=== PATIENT | male | born 1970 | race Caucasian/White ===

== ENCOUNTER → 2021-02-07 08:50 | Outpatient (CLI) | payer BC, SELFPAY | PROVIDERS: PCP Family Medicine; Visit Provider Family Medicine | DX: G47.30 Sleep apnea, unspecified (principal); I10 Essential (primary) hypertension; R06.83 Snoring; E66.9 Obesity, unspecified | CPT/HCPCS: G0399 ==

== ENCOUNTER → 2021-11-13 08:18 | Outpatient (CLI) | payer BC, SELFPAY ==
[2021-11-14 06:09] LABS: Covid-19 Nasal PCR Sendout Lex POSITIVE
== END ==
PROVIDERS: PCP Family Medicine; Visit Provider Nurse Practitioner
DX: U07.1 COVID-19 (principal)
CPT/HCPCS: C9803; U0004; U0005

== ENCOUNTER 2022-07-09 19:19 | Emergency (ER) | payer BC, SELFPAY ==
[2022-07-09 19:55] VITALS: BP 162/90; PULSE 71; RESP 19; TEMP 36.8; O2SAT 98; BMI 29.3
[2022-07-09 20:11] LABS: Apearance,Urine Clear (Clear); Bilirubin,Urine Negative (Negative); Blood, Urine Negative (Negative); Color,Urine Yellow (Yellow); Glucose,Urine (UA) Negative (Negative); Ketones,Urine Negative (Negative); Protein,Urine Negative (Negative); Specific Gravity, Urine 1.015 (1.005-1.030); UTC Leukocyte Esterase,Urine Negative (Negative); UTC Nitrate,Urine Negative (Negative); Urobilinogen,Urine 0.2 EU/dl (0.2)
[2022-07-09 20:12] LABS: UTC Strep Screen (Rapid) Negative (Negative)
[2022-07-09 20:40] LABS: Adenovirus,PCR Not Detected (NotDetected); Bordetella Pertussis Not Detected (NotDetected); Chlamydophila Pneumoniae, PCR Not Detected (NotDetected); Coronavirus 19, PCR Not Detected (NotDetected); Coronavirus 229E Not Detected (NotDetected); Coronavirus NL63 Not Detected (NotDetected); Coronavirus OC43 Not Detected (NotDetected); Coronovirus HKU1,PCR Not Detected (NotDetected); Human Metapneumovirus Not Detected (NotDetected); Influenza A, PCR Not Detected (NotDetected); Influenza AH1, 2009 Not Detected (NotDetected); Influenza AH1, PCR Not Detected (NotDetected); Influenza AH3,PCR Not Detected (NotDetected); Influenza B, PCR Not Detected (NotDetected); Mycoplasma Pneumoniae, PCR Not Detected (NotDetected); Parainfluenza 1, PCR Not Detected (NotDetected); Parainfluenza 2, PCR Not Detected (NotDetected); Parainfluenza 3, PCR Not Detected (NotDetected); Parainfluenza 4, PCR Not Detected (NotDetected); Respiratory Syncytial Virus Not Detected (NotDetected)
--- NOTE | 2022-07-09 20:47 | EXP.UTC ---
Discharge Plan Prescriptions Prescriptions: No Action lisinopril 10 mg tablet 10 mg PO DAILY Label Comments: TAKE 1 TABLET BY MOUTH ONCE DAILY Referrals Follow up/Referrals: Dedrick Church MD [Primary Care Provider] - See instructions Activity Restrictions/Add. Instructions Additional Instructions/Restrictions: *Monitor Temp, Over the counter Motrin or Tylenol as directed/as needed Tylenol every 4 hours and Motrin every 6 hours (as long as your family doctor has told you that you can take it) for fever or pain. and straight to ER if unable to lower temp less than 101.0 after medication given *Warm salt water gargles may help to soothe the throat *Throat Lozenges? *Warm fluids like tea with honey may help to soothe the throat? *Sleep elevated *Humidifier/Vaporizer Your throat swab was sent for culture. Those results are typically sent to your primary care. Be sure to follow up in 2-3 days with your family doctor/primary care physician if no improvement so they can review those result and treat if necessary. If you don?t have a primary care doctor, I recommend you get one but in the mean time, you will have to return to a walk in clinic Follow up IMMEDIATELY for new or worsening symptoms or no Noticeable improvement over the next 48-72 hours. 911 for difficulty breathing or swallowing You were tested for today for Upper Respiratory Panel with COVID19 your test result should be back in the next 24-48 hours, you may check your results on the [facility] My Health Portal Make sure to take your Vitamins Vit. C Vit D and Zinc if you can take them Clinical Impressions Clinical Impression: Viral syndrome Stand Alone Forms Stand Alone Forms: Work/School Release Instructions Patient Instructions: Sore Throat, DI for Viral Syndrome Discharge ED Provider: Lashonda Marcelo [facility] [place] General Stated complaint: Sore throat,body aches Mode of Arrival: Ambulatory Source of Information: Patient Limitations: No Limitations Time Seen by Provider: 07/09/22 20:47 Description of Symptoms (Recalled from Triage Doc. by RN): PATIENT C/O BODY ACHES, SORE THROAT, AND FREQUENT URINATION X 4 DAYS HEENT Symptoms (Recalled from RN notes): Yes Resp Symptoms (Recalled from RN notes): No Skin Symptoms (Recalled from RN notes): No MS Symptoms (Recalled from RN notes): Yes Functional Status (Recalled from RN notes): WNL History of Present Illness Provider Complaint: Patient states that he has been having sore throat and body aches for about 4 days States that he also noticed he felt like he was urinating more frequently and wanted to get his urine checked to see if he may have a UTI States that this evening he was still not feeling well so he came in to get checked Related Data Home Medications Medication Instructions Recorded Confirmed lisinopril 10 mg tablet 10 mg PO DAILY Hypertension 07/09/22 07/09/22 Allergies Allergy/AdvReac Type Severity Reaction Status Date / Time No Known Allergies Allergy Verified 02/01/19 20:06 Worker's Comp Is this a Worker's Comp case?: No PFSH [facility] Medical History (Updated 07/09/22 @ 20:55 by Lashonda Marcelo APRN) Hypertension Social History (Updated 07/09/22 @ 20:10 by Annemarie Peres RN) Smoking Status: Unknown if ever smoked alcohol intake: never current occupational status: employed Travel in the last 8 weeks: None ROS Obtained: Yes All systems reviewed & no additional complaints except as documented and Yes Systems reviewed as appropriate & no additional complaints except as documented Constitutional Constitutional: Reports system reviewed and no additional complaints, except as documented and Reports as per HPI ENT Ears, Nose, Mouth, and Throat: Reports system reviewed and no additional complaints, except as documented, Reports as per HPI, Reports nasal congestion, Reports nasal discharge and Reports sore throat Cardiovascular Cardiovascular: Reports s
[2022-07-09 20:56] VITALS: BP 162/90; PULSE 71; RESP 19; TEMP 36.8; O2SAT 98
[2022-07-09 22:08] LABS: Rhinovirus/Enterovirus Detected (NotDetected)
== END 2022-07-09 21:01 | disposition home or self-care (01) ==
LOC: UTC 19:22
PROVIDERS: Emergency Provider Nurse Practitioner; PCP Family Medicine
DX: B34.8 Other viral infections of unspecified site (principal)
CPT/HCPCS: 81003; 87581; 87632; 87798; 87880; 99212; C9803; G0463; U0003; U0005

== ENCOUNTER 2025-05-04 07:16 | Outpatient (CLI) | payer SELFPAY ==
--- OUTSIDE RECORDS SUMMARY | 2024-10-29 05:00 | XMS_ITS ---
Author Organization [facility] Address [facility] [facility] [address] [place] [id number] Care Team Providers Care Cyber Workforce Developer And Manager Name Role Phone Dedrick Church Primary Care Provider [phone] Allergies No Known Allergies REASON FOR VISIT 6 month check Medications Medication SIG (Take, Route, Fr equency, Duration) Notes Start Date End Date Status Lisinopril 10 MG 1 tablet Orally once daily; Duration: 90 days Active Mupirocin 2 % 1 application Forming Process Line Worker ally Twice a day; Duration: 5 day(s) Active Acyclovir 200 MG 1 capsule Orally Three times a day Active Vital Signs Blood pressure systolic 128 mm Hg 10/29/19 25 Blood pressure diastolic 76 mm Hg 025 Heart Rate 56 /min 10/29/2024 Height 75 in 10/29/2024 Weight 232 lbs 10/29/2024 BMI 28.99 kg/m2 10/29/2024 Encounters Encounter Location Date Provider Diagnosis [facility] [address] [place] [id number] 10/29/2024 Dedrick Church Primary hypertension I10 Assessments Encounter Date Diagnosis (ICD Code) Assessment Notes Treatment Notes Treatment Clinical Notes Section Notes 10/29/2024 Primary hypertension (ICD-10 - I10) Plan Of Treatment Medication Medication Name Sig Start Date Stop Date Notes Lisinopril 10 MG 1 tablet Orally once daily; Duration: 90 days Next Appt Details Follow Up: 6 Months fasting, Reason: Provider Name:Dedrick chicas, 11/11/2025 09:00:00 AM, [address], [address], [place], [place], [phone], Progress Notes * CHRISTOPHER LAWDOB: 2 (54 yo M)Acc No.[id number]:10/29/2024 Progress Notes Patient: CHRISTOPHER SIMEON Provider: Bronson Church M.D. :1970 A ge:54 Y S ex:Male Date:10/29/2024 Address:[facility] [place], [id number] Subjective: * Chief Complaints: * 1 . 6 month check. * HPI: C ardiology: Blood Pressure Elevated P t presents today for a 6 month check up. Pt is fasting today however believes he is not due for labs until March. D ermatology: blisters P t sts that he is seeing Dr. Tavarez for his lip. Pt sts that he is currently on Acyclovir and Mupirocin cream but does not feel that it is working.? * ROS: D ERMATOLOGY: no R talita. [...] . Alcohol: no. * Medications: T aking Mupirocin 2 % Ointment 1 application Externally Twice a day , Taking Acyclovir 200 MG Capsule 1 capsule Orally Three times a day , Taking Lisinopril 10 MG Tablet 1 tablet Orally once daily , Discontinued valACYclovir HCl 1 GM Tablet 2 tablet Orally 2 times a day , Medication List reviewed and reconciled with the patient * Allergies: N .K.D.A. Objective: * Vitals: W t:232, Temp:97.9, BP:128/76, HR:56, Nurse:YVETTE, Ht: 75, BMI:28.99. * Examination: C ardiology: General Appearance: p leasant, NAD. H eart sounds: R RR. L ungs: c lear, no rales or wheezes. E xtremities: n o leg edema. ? Assessment: * Assessment: 1. P rimary hypertension - I10 (Primary) Plan: * Treatment: * Follow Up: 6 Months fasting * Images: Billing Information: * Visit Code: 82040 Office Visit, Est Pt., Level 3. * Procedure Codes: * Electronic signature of Charu Church MD on 05/04/2025 at 07:17 AM EDT Sign off status: Pending * Provider: Bronson Church M.D. Date: 0 10/29/2024 Generated for Luis F pierson/Lilliam/eTransmitting on: 0 05/04/2025 07:17 AM EDT History and Physical Notes * HPI (History of Present Illness) Category Sub-Category Detail Notes Category Not es Dermatology blisters Pt sts that he i s seeing Dr. Tavarez for his lip. Pt sts that he is currently on Acyclovir and Mupirocin cream but does not feel that it is working Cardiology Blood Pressure Elevated Pt prese nts today for a 6 month check up. Pt is fasting today however believes he is not due for labs until March Examination Category Sub-Category Detail Notes Category Not es Cardiology Lungs: clear, no rales or wheezes Heart sounds: RRR Extremities: no leg edema General Appearance: pleasant, NAD
--- OUTSIDE RECORDS SUMMARY | 2025-04-29 05:00 | XMS_ITS ---
Author Organization [facility] Address [address] [facility] [address] [place] [id number] Care Team Providers Care Lining Strap Closer Name Role Phone Dedrick Church Primary Care Provider Allergies No Known Allergies Results Component Value Reference Range Notes P-Basic Metabolic Panel (BMP ) Reviewed date:04/30/2025 09:39:02 AM Interpretation:Normal Performing Lab: Notes/Report: Test performed by [facility] [address] [place] [address] , [address], [place] [address] Nando Delgadillo MD, Transport Engineer CLIA: [id number] Sodium 142 135-145 mmol/L Potassium 4.2 3.5-5.3 mmol/L Chloride 108 97-108 mmol/L CO2 25 20-32 mmol/L Glucose 98 65-99 mg/dL BUN 19 6-20 mg/dL Creatinine 0.91 0.70-1.30 mg/dL Calcium 8.9 8.6-10.4 mg/dL eGFR by Creatinine 101 >59 mL/min/1.73m2 P-Lipid Panel Reviewed date:04/30/2025 09:39:02 AM Interpretation:HDL 28, Chol/HDL 5.82, Non-HDL 135, LDL/HDL 3.9 Performing Lab: Notes/Report: Test performed by [facility] [address] [place], [place] [address] [address] , [address], [place] [address] Nando Delgadillo MD, Transport Engineer CLIA: [id number] Cholesterol 163 <200 mg/dL Triglycerides 135 <150 mg/dL HDL Cholesterol 28 >39 mg/dL Cholesterol / HDL Ratio 5.82 0.00-4.99 Ratio Non-HDL Cholesterol 135 <130 mg/dL LDL Cholesterol (Calculation) 108 <130 mg/dL LDL Cholesterol Levels* Less than 100 mg/dL Optimal 100 to 129 mg/dL Near Optimal/ Above Optimal 130 to 159 mg/dL Borderline High 160 to 189 mg/dL High 190 mg/dL and above Very High * Categories as recommended by the 2004 ATPIII guidelines LDL/HDL Ratio 3.9 <3.3 Ratio LDL Cholesterol Patient History Test Date: 04/25/2023 LDL Results: 117 Units: mg/dL % Change: - Test Date: 04/26/2024 LDL Results: 115 Units: mg/dL % Change: -1% Test Date: 04/29/2025 LDL Results: 108 Units: mg/dL % Change: -6% P-PSA Reviewed date:04/30/2025 09:39:02 AM Interpretation:Normal Performing Lab: Notes/Report: Test performed by [facility] [address] [place] [address] , [address], [place] [address] Nando Delgadillo MD, Transport Engineer CLIA: [id number] PSA 2.91 <4.00 ng/mL Please note this is an ultrasensitive PSA assay with a lower limit of detection of 0.014 ng/mL. This test is performed by the [employer] ECLIA methodology. Values obtained with different assay methods or kits cannot be directly compared. P-Microalbumin/Creatinine, R andom Urine Sample Reviewed date:04/30/2025 09:39:02 AM Interpretation:Normal Performing Lab: Notes/Report: Test performed by [facility] [address] [place] [address] , [address], [place] [address] Nando Delgadillo MD, Transport Engineer CLIA: [id number] Albumin/Creatinine Ratio, Urine <1.98 0-30 ug/mg Microalbumin, Urine, Random <0.3 Creatinine, Urine 151.0 Reason For Referral Diagnosis 1 Word finding difficu lty (R47.89) Referral Organization [facility] Referring Provider First Name Dedrick Referring Provider Last Name Ranjit Referring Provider Speciality Family [facility] ctice Referred Provider Philomena Woods Referred Provider Specialty Neurology General Notes Gloria Schuler 2024 09:49:08 AM > faxed to [facility] Neurology Referral Priority Routine REASON FOR VISIT 6 mths with fasting labs Medications Medication SIG (Take, Route, Fr equency, Duration) Notes Start Date End Date Status Lisinopril 10 MG Take 1 tablet by mouth once daily Active Acyclovir 200 MG 1 capsule Orally Three times a day Active Vital Signs Blood pressure systolic 130 mm Hg 04/29/20 25 Blood pressure diastolic 70 mm Hg 025 Heart Rate 75 /min 04/29/2025 Height 75 in 04/29/2025 Weight 229 lbs 04/29/2025 BMI 28.62 kg/m2 04/29/2025 Encounters Encounter Location Date Provider Diagnosis [facility] [address] [facility] [address] [facility] [address] [place] [id number] 04/29/2025 Dedrick Ranjit Primary hypertension I10 ; Word finding difficulty R47.89 ; Encounter for screening for coronary artery disease Z13.6 and Prostate cancer screening Z12.5 Assessments Encounter Date Diagnosis (ICD Code) Assessment Notes Treatment Notes Treatment Clinical Notes Section Notes 04/29/2025 Primary hypertension (ICD-10 - I10) 04/29/2025 Word finding difficulty (ICD-10 - R47.89) 04/29/2025 Encounter for screening for coronary artery disease (ICD-10 - Z13.6) 04/29/2025 Prostate cancer screening (ICD-10 - Z12.5) Plan Of Treatment Medication Medication Name Sig Start Date Stop Date Notes Lisinopril 10 MG Take 1 tablet by mouth once daily Pending Test Test Name Order Date CT Scan : Coronary w/o contrast (calcium scoring) 04/29/2025 Referrals Referral Date Details 04/29/2025 04/29/2025, Philomena arteaga Next Appt Details Follow Up: 6 Months, Reason: Provider Name:Dedrick Wayne ry, 11/11/2025 09:00:00 AM, [address] [facility] 36 [facility], [address], [place], [id number], Progress Notes * THANHCHRISTOPHERDOB: 2 (54 yo M)Acc No.[id number]:04/29/2025 Progress Notes Patient: CHRISTOPHER SIMEON Provider: Bronson Church M.D. :1970 A ge:54 Y S ex:Male Date:04/29/2025 Address:[id number] Subjective: * Chief Complaints: * 1 . 6 mths with fasting labs. * HPI: C ardiology: 54 year old male presents with c/o Blood Pressure Elevated P t here for 6 mo check up on hypertension. Pt states he is doing well and does not have any concerns. Pt is fasting today. * ROS: D ERMATOLOGY: no R talita. n o H rg. G ASTROENTEROLOGY: no N ausea. n o V omiting. N EUROLOGY: Positive for r equests Neurology referral due to occasional difficulty finding words in conversation. U ROLOGY: no D ifficulty urinating. n [...] . Alcohol: no. * Medications: T aking Acyclovir 200 MG Capsule 1 capsule Orally Three times a day , Taking Lisinopril 10 MG Tablet Take 1 tablet by mouth once daily , Discontinued Mupirocin 2 % Ointment 1 application Externally Twice a day , Medication List reviewed and reconciled with the patient * Allergies: N .K.D.A. Objective: * Vitals: W t: 229, Temp: 98.0, BP: 130/70, HR: 75, Nurse: javier, Ht: 75, BMI:28.62. * Examination: C ardiology: General Appearance: p leasant, NAD. H eart sounds: R RR. L ungs: c lear, no rales or wheezes. E xtremities: n o leg edema. ? Assessment: * Assessment: 1. P rimary hypertension - I10 (Primary) 2 . W ord finding difficulty - R47.89 3 . E ncounter for screening for coronary artery disease - Z13.6 ?4. P rostate cancer screening - Z12.5 Plan: * Treatment: Value Reference Range B UN 19 6-20 - mg/dL * C alcium 8.9 8.6-10.4 - mg/dL * C hloride 108 97-108 - mmol/L * C O2 25 20-32 - mmol/L * C reatinine 0.91 0.70-1.30 - mg/dL * G lucose 98 65-99 - mg/dL * P otassium 4.2 3.5-5.3 - mmol/L * S odium 142 135-145 - mmol/L * e GFR by Creatinine 101 >59 - mL/min/1.73m2 * Mouna Beckham 04/30/2025 09: 38:49 AM EDT > See phone encounter ?LAB: P-Lipid Panel (Collection Date & Time - 04/29/2025 08:35 AM)?HDL 28, Chol/HDL 5.82, Non-HDL 135, LDL/HDL 3.9* Value Reference Range C holesterol / HDL Ratio 5.82 H 0.00-4.99 - Ratio * C holesterol 163 <200 - mg/dL * H DL Cholesterol 28 L >39 - mg/dL * L DL Cholesterol (Calculation) 108 <130 - mg/d L * L DL/HDL Ratio 3.9 H <3.3 - Ratio * N on-HDL Cholesterol 135 H <130 - mg/dL * T riglycerides 135 <150 - mg/dL * Mouna Beckham 04/30/2025 09: 38:49 AM EDT > See phone encounter ?LAB: P-Microalbumin/Creatinine, Random Urine Sample (Collection Date & Time - 04/29/2025 08:35 AM)?Normal* Value Reference Range A lbumin/Creatinine Ratio, Urine <1.98 0-30 - ug /mg * C reatinine, Urine 151.0 - mg/dL * M icroalbumin, Urine, Random <0.3 - mg/dL * Mouna Beckham 04/30/2025 09: 38:49 AM EDT > See phone encounter 2.?Word finding difficulty? Referral To:Philomena Woods??Neurology ?Reason: 3.?Encounter for screening for coronary artery disease?Imaging: CT Scan : Coronary w/o contrast (calcium scoring)* Gloria Schuler 04/29/2025 09:4 0:45 AM EDT > patient pays $99 at time of testing so no auth required; sent to [facility] Scheduling 4.?Prostate cancer screening?LAB: P-PSA (Collection Date & Time - 04/29/2025 08:35 AM)?Normal* Value Reference Range P SA 2.91 <4.00 - ng/mL * Mouna Beckham 04/30/2025 09: 38:49 AM EDT > See phone encounter * Follow Up: 6 Months * Images: Billing Information: * Visit Code: 32533 Office Visit, Est Pt., Level 4. * Procedure Codes: * Electronic signature of Charu Church MD on 05/04/2025 at 07:17 AM EDT Sign off status: Pending * Provider: Bronson Church M.D. Date: 04/29/2025 Generated for Luis F pierson/Lilliam/eTransmitting on: 05/04/2025 07:17 AM EDT History and Physical Notes * HPI (History of Present Illness) Category Sub-Category Detail Notes Category Not es Cardiology Blood Pressure Elevated Pt here for 6 mo check up on hypertension. Pt states he is doing well and does not have any concerns. Pt is fasting today Examination Category Sub-Category Detail Notes Category Not es Cardiology Lungs: clear, no rales or wheezes Heart sounds: RRR Extremities: no leg edema General Appearance: pleasant, NAD Consultation Request Notes Referral Date Referring Provider Referred Provider Not es 04/29/2025 Dedrick Church Maria
--- OUTSIDE RECORDS SUMMARY | 2025-05-04 07:17 | XMS_ITS | Patient Health Record ---
[facility] Address [address] [place] [id number] Care Team Providers Care Plate Roller Name Role Phone Dedrick Church Primary Care Provider [phone] Allergies No Known Allergies Results Component Value Reference Range Notes P-Microalbumin/Creatinine, R andom Urine Sample Reviewed date:04/30/2025 09:39:02 AM Interpretation:Normal Performing Lab: Notes/Report: Test performed by [facility] [address] [place], [place] [address] [place] , [address], [place] [address] Nando Delgadillo MD, Maintenance Mechanic Technician CLIA: [id number] Albumin/Creatinine Ratio, Urine <1.98 0-30 ug/mg Microalbumin, Urine, Random <0.3 Creatinine, Urine 151.0 P-PSA Reviewed date:04/30/2025 09:39:02 AM Interpretation:Normal Performing Lab: Notes/Report: Test performed by [facility] [address] [place], [place] [address] [place] , [address], [place] [address] Nando Delgadillo MD, Maintenance Mechanic Technician CLIA: [id number] PSA 2.91 <4.00 ng/mL Please note this is an ultrasensitive PSA assay with a lower limit of detection of 0.014 ng/mL. This test is performed by the [employer] ECLIA methodology. Values obtained with different assay methods or kits cannot be directly compared. P-Lipid Panel Reviewed date:04/30/2025 09:39:02 AM Interpretation:HDL 28, Chol/HDL 5.82, Non-HDL 135, LDL/HDL 3.9 Performing Lab: Notes/Report: Test performed by [facility] [address] [facility] , [address], [place] [address] Nando Delgadillo MD, Maintenance Mechanic Technician CLIA: [id number] Cholesterol 163 <200 mg/dL Triglycerides 135 <150 [...] Results: 108 Units: mg/dL % Change: -6% P-Basic Metabolic Panel (BMP ) Reviewed date:04/30/2025 09:39:02 AM Interpretation:Normal Performing Lab: Notes/Report: Test performed by [facility], [address] , [address], [place] [address] Nando Delgadillo MD, Maintenance Mechanic Technician CLIA: [id number] Sodium 142 135-145 mmol/L Potassium 4.2 3.5-5.3 mmol/L Chloride 108 97-108 mmol/L CO2 25 20-32 mmol/L Glucose 98 65-99 mg/dL BUN 19 6-20 mg/dL Creatinine 0.91 0.70-1.30 mg/dL Calcium 8.9 8.6-10.4 mg/dL eGFR by Creatinine 101 >59 mL/min/1.73m2 Reason For Referral Reason [facility], no provider pre ference Diagnosis 1 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 Referring Provider First Name Dedrick Referring Provider Last Name Ranjit Referring Provider [facility] ctice Referred Provider ENT, . Referred Provider Specialty ENT General Notes Gloria Schuler 024 2:19:02 PM > faxed to [facility] Harini LEWIS Brynn 09/23/2024 10:33:38 AM > confirmed with Bridget referral received 09/21/2024 Referral Priority Routine Diagnosis 1 Word finding difficu lty (R47.89) [facility] Referring Provider First Name Dedrick Referring Provider Last Name Ranjit Referring Provider [facility] ctice Referred Provider Philomena Woods Referred Provider Specialty Neurology General Notes Gloria Schuler 2024 09:49:08 AM > faxed to [facility] Neurology Referral Priority Routine Medications Medication SIG (Take, Route, Fr equency, Duration) Notes Start Date End Date Status Lisinopril 10 MG Take 1 tablet by mouth once daily Active Acyclovir 200 MG 1 capsule Orally Three times a day Active Immunizations Vaccine Route Administration Date Status Comme nts COVID 19 Moderna Unknown 02/16/2021 Administered COVID 19 Moderna Unknown 03/16/2021 Administered Problems Problem Type SNOMED Code ICD Code Onset Dates Problem Status W/U Status Risk Notes 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 Problem Primary hypertension (I10) Active confirmed Vital Signs Heart Rate 75 /min 04/29/2025 Blood pressure diastolic 70 mm Hg 04/29/2025 Height 75 in 04/29/2025 Blood pressure systolic 130 mm Hg 04/29/2025 Weight 229 lbs 04/29/2025 BMI 28.62 kg/m2 04/29/2025 Encounters Encounter Location Date Provider Diagnosis [facility] [facility] [address] [place], [place] [phone] 09/14/2024 Dedrick [place] Recurrent herpes labialis B00.1 [facility] [address] [facility] [address] [place], [place] [id number] 10/29/2024 Dedrick [place] Primary hypertension I10 [facility] [address] [place], [place] [id number] 04/29/2025 Dedrick [place] Primary hypertension I10 ; Word finding difficulty R47.89 ; Encounter for screening for coronary artery disease Z13.6 and Prostate cancer screening Z12.5 [facility] [address] [place], [place] [id number] 09/20/2024 Dedrick [place] 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, vermilion border D37.01 [facility] [address] [place], [place] [phone] 04/30/2025 Dedrick [place] Assessments Encounter Date Diagnosis (ICD Code) Assessment Notes Treatment Notes Treatment Clinical Notes Section Notes 09/14/2024 Recurrent herpes labialis (ICD-10 - B00.1) 09/20/2024 Neoplasm of uncertain behavior of lip, 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) 10/29/2024 Primary hypertension (ICD-10 - I10) 04/29/2025 Word finding difficulty (ICD-10 - R47.89) 04/29/2025 Primary hypertension (ICD-10 - I10) 04/29/2025 Encounter for screening for coronary artery disease (ICD-10 - Z13.6) 04/29/2025 Prostate cancer screening (ICD-10 - Z12.5) Plan Of Treatment Pending Test Test Name Order Date CT Scan : Coronary w/o contrast (calcium scoring) 04/29/2025 Next Appt Details Provider Name:Dedrick chicas, 11/11/2025 09:00:00 AM, [address] [facility], [address], [place], [place], [id number], Insurance Providers Payer Name Payer Address Payer Phone Subscriber Number Group Number Insured Name Patient Relationship to Insured Coverage Start Date Coverage End Date [facility] [address] [place] [address] [id number] CHRISTOPHER LAW Self - patient is the insured Medical (General) History Medical History History ICD Code Hypertension Cologuard 2020 Surgical History Surgery Date(Month/Year)
--- NOTE | 2025-05-04 07:18 | CT_ITS ---
APPROVED REPORT Biological Photographer: CLINICAL INDICATION Coronary risk evaluation and stratification TECHNIQUE Image Acquisition: A 128 slice MDCT scanner (Olistaa View) was used for data acquisition. A noncontrast coronary calcium scan was performed. A CT attenuation threshold of 130 Hounsfield units (HU) was used for the detection of calcium in contiguous voxels of 1 sq mm in area to be counted as individual lesions. A tube voltage of 120 KVp was used. The patient received no medications prior to the coronary calcium CT. Image Reconstruction Transaxial images were reconstructed at 0.67 mm slide thickness. Data was reviewed interactively on an advanced workstation capable of 2 and 3-dimensional displays in all conventional reconstruction formats, including multiplanar reformations, maximum intensity projections, curved multiplanar reformations, and volume rendered reconstructions. When applicable, selected routine images describing the relevant coronary anatomy and pathology were saved and sent to PACS. Complications None Technical Quality Overall image quality was good. Total DLP (Dose-Length Product) is 197.9 mGy-cm. The reported value represents the total of one or more individual components during the CT acquisition of this date and at this time, and as such, the same value may appear in more than one CT report depending on the interpreting/reporting physicians. COMPARISON None FINDINGS CT Coronary Calcium Scoring LMA (Left Main Artery) = 0 LAD (Left Anterior Descending) = 0 LCX (Left Coronary Circumflex) = 0 RCA (Right Coronary Artery) = 0 Total Calcium Score = 0 using the AJ-130 method. There is no identifiable calcification in the aortic valve, mitral annulus or mitral valve, pericardium, or myocardium. IMPRESSION -Coronary artery calcification is absent. -Total Calcium Score (Agatston Score) = 0 using the AJ-130 method. The interpretation of the calcium heart score is based on the following continuum*: 0 = no calcified plaque detected (risk of coronary artery disease is very low ??? less than 5%) 1-10 = calcium detected in extremely minimal levels (risk of coronary diseases is still low ??? less than 10%) 11-100 = mild levels of plaque detected with certainty (mild or minimal narrowing of heart arteries is likely) 101-400 = definite,at least moderate levels of plaque detected (relatively high risk of a heart attack within 3-5 years) >401-999 = extensive levels of plaque detected (high risk of heart attack, high levels of vascular disease are present, high likelihood of at least one significant coronary narrowing) *The calcium heart score quantifies the burden of coronary calcification/plaque in the coronary arteries. The calcium heart score does not evaluate the presence or the burden of non-calcified (i.e. soft) plaque. The coronary and cardiac findings of this Coronary Calcium CT were reviewed, reported, and signed by aR Sepulveda MD (Business Continuity Specialist). Conclusion Electronically signed by : Mara Sepulveda MD 05/04/2025 13:07:20
--- OUTSIDE RECORDS SUMMARY | 2025-05-04 07:18 | XMS_ITS | Clinical Summary ---
[facility] Organization [facility] Address [address] [place] [address] Care Team Providers Care Machine Pecan Gatherer Name Role Phone Dedrick Goodman MD Primary Care Provider Allergies No known active allergies Medications lisinopril (PRINIVIL,ZESTRIL) 10 MG tabletIndications: Benign essential HTN Take 1 tablet by mouth Daily. 90 tablet 1 7 Active tobramycin (TOBREX) 0.3 % solution ophthalmic solutionIndication s:Acute bacterial conjunctivitis of left eye Administer 1 drop into the left eye Every 6 (Six) Hours. for 5-7 days 5 mL 7 Active Active Problems Problem Noted Date Diagnosed Date Benign essential HTN 02/29/2016 Pure hypercholesterolemia 02/29/2016 Family History Medical History Relation Name Comments No Known Problems Father Cancer Maternal Grandfather lung ca ncer Cancer Maternal Grandmother lung ca ncer Hypertension Mother Hypertension Sister Relation Name Status Comments Father Alive Maternal Grandfather Maternal Grandmother Mother Alive Sister Social History Tobacco Use Types Packs/Day Years Used Date Smoking Tobacco: Never Smokeless Tobacco: Never Alcohol Use Standard Drinks/Week Comments No 0 (1 standard drink = 0.6 oz pur e alcohol) Abuse Screen Answer Date Recorded Unsafe at Home or Work/School Not on file Feels Threatened by Someone? Not on file 08/2023 Does Anyone Keep You from Co ntacting Others or Doint Things Outside the Home? Not on file 07/23/2023 Physical Sign of Abuse Present Not on file 1 Housing Stability Answer Date Recorded Current Living Arrangements Not on file 07/13 Potentially Unsafe Housing Conditions Not on lynn e 07/23/2023 Family and Community Support Answer Oswald e Recorded Help with Day-to-Day Activities Not on file 07/23/2023 Lonely or Isolated Not on file 07/23/2023 Employment Answer Date Recorded Do you want help finding or keeping work or a christelle b? Not on file 07/23/2023 Disabilities Answer Date Recorded Concentrating, Remembering, or Making Decisions Difficulty Not on file 07/23/2023 Doing Errands Independently Difficulty Not on fi le 07/23/2023 Education Answer Date Recorded Help with school or training? Not on file Preferred Language Not on file 07/23/2023 Sex and Gender Information Value Date Recorded Sex Assigned at Not on file Legal Sex Male 11:53 AM EDT Gender Identity Not on file Sexual Orientation Not on file Last Filed Vital Signs Vital Sign Reading Time Taken Comments Blood Pressure 98/76 07/08/2017 10:03 AM EDT Pulse 51 07/08/2017 10:03 AM EDT Temperature 36.7 C (98 F) 07/08/2017 10:03 AM EDT Respiratory Rate 14 07/08/2017 10:03 AM EDT Oxygen Saturation 99% 07/08/2017 10:03 AM EDT Inhaled Oxygen Concentration - - Weight 107 kg (235 lb 8 oz) 07/08/2017 10:03 AM EDT Height 190.5 cm (6' 3 ) 07/08/2017 10:03 AM EDT Body Mass Index 29.44 07/08/2017 10:03 AM EDT Plan of Treatment Health Maintenance Due Date Last Done Comments TDAP/TD VACCINES (1 - Tdap) 1991 ANNUAL PHYSICAL 02/29/2016 HEPATITIS C SCREENING 02/29/2016 COLOGUARD 2017 COLON CANCER SCREENING 5 YEA R SIGMOIDOSCOPY 2017 COLONOSCOPY 2017 [address] CANCER SCREENING 2017 CT COLONOGRAPHY 2017 FECAL OCCULT BLOOD TEST 2017 FIT Testing (1 year) 2017 LIPID PANEL 07/08/2018 07/08/2017, 10/15, 02/29/2016, Additional history exists Pneumococcal Vaccine 50+ (1 of 1 - PCV) 2022 ZOSTER VACCINE (1 of 2) 2022 COVID-19 Vaccine ( - 2023-2 5 season) 2024 INFLUENZA VACCINE 07/13/2025 07/13/2016 Procedures Procedure Name Priority Date/Time Associated Diagnosis Comments LIPID PANEL W/ CHOL/HDL RATIO Routine 07/08/2017 10:41 AM EDT Benign essential HTN Pure hypercholesterolemia from Last 3 Months or Most Recently Relevant to Health Maintenance Results * (ABNORMAL) Lipid Panel With / Chol / HDL Ratio (07/08/2017 10:41 AM EDT) Pathologist [facility] Total Cholesterol 173 0 - 200 mg/dL [facility] Comment: Cholesterol Reference Ranges: Desirable < 200 mg/dL Borderline 200-239 mg/dL High Risk > 239 mg/dL Triglyceride Reference Ranges: Normal < 150 mg/dL Borderline 150-199 mg/dL High 200-499 mg/dL Very High > 499 mg/dL HDL Reference Ranges: Low < 40 mg/dL High > 59 mg/dL LDL Reference Ranges: Optimal < 100 mg/dL Near Optimal 100-129 mg/dL Borderline 130-159 mg/dL High 160-189 mg/dL Very High > 189 mg/dL Triglycerides 151(H) 0 - 150 mg/dL [facility] HDL Cholesterol 31(L) 40 - 60 mg/dL [facility] VLDL Cholesterol 30.2 mg/dL [facility] LDL Cholesterol 112(H) 0 - 100 mg/dL [facility] Chol/HDL Ratio 5.58 [facility] Blood 07/08/2017 10:4 1 AM EDT 07/08/2017 Narrative [facility] - 07/08/2017 8:10 PM EDT Performed at: [address] [place] [address], [place], [place] [id number] Adult Protective Caseworker: Tres Rojas MD, Phone: [phone] Patient Fasting: Y us Dedrick Goodman MD LAB BLOOD ORDERABLES Final Resu lt [facility] [address] [place] [address], [place] [phone] [facility] [address] [place] [address], [place] [phone] from Last 3 Months or Most Recently Relevant to Health Maintenance Insurance [facility] [employer] Care Teams Machine Pecan Gatherer Relationship Specialty Start Date End Date Dedrick Goodman MD [address] [place] [address] PCP - General 06/28/15
== END 2025-05-04 23:59 | disposition home or self-care (01) ==
LOC: RAD 07:16
PROVIDERS: PCP Family Medicine; Visit Provider Family Medicine
DX: Z13.6 Encounter for screening for cardiovascular disorders (principal)
CPT/HCPCS: 75571

== ENCOUNTER 2025-06-29 09:25 | Outpatient (CLI) | payer BC, SELFPAY ==
--- OUTSIDE RECORDS SUMMARY | 2024-04-26 05:00 | XMS_ITS ---
Author Organization [facility] Address [address] [facility] [address] [place] [id number] Care Team Providers Care Studio Designer Name Role Phone Dedrick Church Primary Care Provider [phone] Allergies No Known Allergies Results Component Value Reference Range Notes Cologuard Reviewed date:05/14/2024 09:49:50 AM Interpretation:Negative Performing Lab: Notes/Report: Negative P-Basic Metabolic Panel (BMP ) Reviewed date:04/27/2024 08:31:15 AM Interpretation:Normal Performing Lab: Notes/Report: Test performed by [email or web address] [address] [place] [address] [address] C, [place] [address] Nando Delgadillo MD, Interventional Sale Consultant CLIA: [id number] Sodium 143 135-145 mmol/L Potassium 4.3 3.5-5.3 mmol/L Chloride 108 97-108 mmol/L CO2 28 22-32 mmol/L Glucose 97 65-99 mg/dL BUN 18 6-20 mg/dL Creatinine 0.94 0.70-1.30 mg/dL Calcium 9.0 8.6-10.4 mg/dL eGFR by Creatinine 98 >59 mL/min/1.73m2 P-Lipid Panel Reviewed date:04/27/2024 08:31:15 AM Interpretation:hdl 30, chol/hdl 5.57, non-hdl 137, ldl/hdl 3.8 Performing Lab: Notes/Report: Test performed by [email or web address] [address] [place] [address] [address] [place] [address] Nando Delgadillo MD, Interventional Sale Consultant [facility]: [id number] Cholesterol 167 <200 mg/dL Triglycerides 111 <150 mg/dL HDL Cholesterol 30 >39 mg/dL Cholesterol / HDL Ratio 5.57 0.00-4.99 Ratio Non-HDL Cholesterol 137 <130 mg/dL LDL Cholesterol (Calculation) 115 <130 mg/dL LDL Cholesterol Levels* Less than 100 mg/dL Optimal 100 to 129 mg/dL Near Optimal/ Above Optimal 130 to 159 mg/dL Borderline High 160 to 189 mg/dL High 190 mg/dL and above Very High * Categories as recommended by the 2004 ATPIII guidelines LDL/HDL Ratio 3.8 <3.3 Ratio LDL Cholesterol Patient History Test Date: 04/25/2023 LDL Results: 117 Units: mg/dL % Change: - Test Date: 04/26/2024 LDL Results: 115 Units: mg/dL % Change: -1% P-PSA Reviewed date:04/27/2024 08:31:15 AM Interpretation:Normal Performing Lab: Notes/Report: Test performed by [email or web address] [address] [place] [address] [address] C, [place] [address] Nando Delgadillo MD, Interventional Sale Consultant CLIA: [id number] PSA 2.55 <4.00 ng/mL Please note this is an ultrasensitive PSA assay with a lower limit of detection of 0.014 ng/mL. This test is performed by the [employer] ECLIA methodology. Values obtained with different assay methods or kits cannot be directly compared. P-Microalbumin/Creatinine, R andom Urine Sample Reviewed date:04/27/2024 08:31:15 AM Interpretation:Normal Performing Lab: Notes/Report: Test performed by [facility] [address] [place] [address] [address] Fern[address] C, [place] [address] Nando Delgadillo MD, Interventional Sale Consultant CLIA: [id number] Albumin/Creatinine Ratio, Urine 2 0-30 ug/mg Microalbumin, Urine, Random 0.4 Creatinine, Urine 174.0 REASON FOR VISIT 6 month fasting labs Medications Medication SIG (Take, Route, Fr equency, Duration) Notes Start Date End Date Status Lisinopril 10 MG 1 tablet Orally once daily; Duration: 90 days Active Vital Signs Blood pressure systolic 122 mm Hg 04/26/20 24 Blood pressure diastolic 74 mm Hg 024 Heart Rate 62 /min 04/26/2024 Height 75 in 04/26/2024 Weight 222 lbs 04/26/2024 BMI 27.75 kg/m2 04/26/2024 Encounters Encounter Location Date Provider Diagnosis [facility] [address] [facility] [address] [place], [place] [id number] 04/26/20[place] Primary hypertension I10 ; Prostate cancer screening Z12.5 and Colon cancer screening Z12.11 Assessments Encounter Date Diagnosis (ICD Code) Assessment Notes Treatment Notes Treatment Clinical Notes Section Notes 04/26/2024 Primary hypertension (ICD-10 - I10) 04/26/2024 Prostate cancer screening (ICD-10 - Z12.5) 04/26/2024 Colon cancer screening (ICD-10 - Z12.11) Plan Of Treatment Medication Medication Name Sig Start Date Stop Date Notes Lisinopril 10 MG 1 tablet Orally once daily; Duration: 90 days Next Appt Details Follow Up: 6 Months, Reason: Provider Name:Dedrick Wayne ry, 11/11/2025 09:00:00 AM, [address], [address], [place], [id number], Progress Notes * CHRISTOPHER LAWDOB: 2 (54 yo M)Acc No.[id number]:04/26/2024 Progress Notes Patient: CHRISTOPHER SIMEON Provider: Bronson Church M.D. :1970 A ge:53 Y S ex:Male Date:04/26/2024 [facility] [place], [id number] Subjective: * Chief Complaints: * 1 . 6 month fasting labs. * HPI: C ardiology: 53 year old male presents with c/o Blood Pressure Elevated P t here for 6 mo f/u on hypertension, states he is doing well and does not have any concerns. Pt is fasting today. * ROS: D ERMATOLOGY: no R talita. n o H rg. G ASTROENTEROLOGY: no N ausea. n o V omiting. U ROLOGY: no D ifficulty urinating. n o B lood in urine. * Medical History: H ypertension, Cologuard 2020. * Surgical History: D enies Past Surgical History. * Hospitalization/Major Diagno stic Procedure: D enies Past Hospitalization. * Family History: High blood pressure: Grandmother, mother, sister. * Social History: C URRENT TOBACCO USE: No . C affeine: yes, frequency: 4 a day, soft drinks. Marital Status: . Alcohol: no. * Medications: T aking Lisinopril 10 MG Tablet Take 1 tablet by mouth once daily , Medication List reviewed and reconciled with the patient * Allergies: N .K.D.A. Objective: * Vitals: W t:222, Temp:98.0, BP:122/74, HR:62, Nurse:javier, Ht: 75, BMI:27.75. * Examination: C ardiology: General Appearance: p leasant, NAD. H eart sounds: R RR, normal S1, S2. L ungs: c lear, no rales or wheezes. E xtremities: n o leg edema. Assessment: * Assessment: 1. P rimary hypertension - I10 (Primary) 2 . P rostate cancer screening - Z12.5 3 . C olon cancer screening - Z12.11 Plan: * Treatment: Value Reference Range B UN 18 6-20 - mg/dL * C alcium 9.0 8.6-10.4 - mg/dL * C hloride 108 97-108 - mmol/L * C O2 28 22-32 - mmol/L * C reatinine 0.94 0.70-1.30 - mg/dL * G lucose 97 65-99 - mg/dL * P otassium 4.3 3.5-5.3 - mmol/L * S odium 143 135-145 - mmol/L * e GFR by Creatinine 98 >59 - mL/min/1.73m2 * Ekaterina Valderrama 04/27/2024 8:31: 07 AM >See phone encounter ?LAB: P-Lipid Panel (Collection Date & Time - 04/26/2024 08:25 AM)?hdl 30, chol/hdl 5.57, non-hdl 137, ldl/hdl 3.8* Value Reference Range C holesterol / HDL Ratio 5.57 H 0.00-4.99 - Ratio * C holesterol 167 <200 - mg/dL * H DL Cholesterol 30 L >39 - mg/dL * L DL Cholesterol (Calculation) 115 <130 - mg/d L * L DL/HDL Ratio 3.8 H <3.3 - Ratio * N on-HDL Cholesterol 137 H <130 - mg/dL * T riglycerides 111 <150 - mg/dL * Ekaterina Valderrama 04/27/2024 8:31: 07 AM >See phone encounter ?LAB: P-Microalbumin/Creatinine, Random Urine Sample (Collection Date & Time - 04/26/2024 08:25 AM)?Normal* Value Reference Range A lbumin/Creatinine Ratio, Urine 2 0-30 - ug /mg * C reatinine, Urine 174.0 - mg/dL * M icroalbumin, Urine, Random 0.4 - mg/dL * Ekaterina Valderrama 04/27/2024 8:31: 07 AM >See phone encounter 2.?Prostate cancer screening?LAB: P-PSA (Collection Date & Time - 04/26/2024 08:25 AM)?Normal* Value Reference Range P SA 2.55 <4.00 - ng/mL * Ekaterina Valderrama 04/27/2024 8:31: 07 AM >See phone encounter 3.?Colon cancer screening?LAB: Cologuard (Collection Date & Time - 05/07/2024)?Negative* Ekaterina Valderrama 04/26/2024 2:22: 51 PM > order Dedrick Toure 05/13/2024 1:53:26 PM > Sent to to inform pt.Mouna Beckham 05/13/2024 5:18:53 PM > left message for return callMouna Beckham 05/14/2024 9:49:36 AM > pt informed * Follow Up: 6 Months * Images: Billing Information: * Visit Code: 47255 Office Visit, Est Pt., Level 4. * Procedure Codes: * Electronic signature of Charu Church MD on 06/29/2025 at 09:34 AM EDT Sign off status: Pending * Provider: Bronson Church M.D. Date: 0 04/26/2024 Generated for Sedai ng/Austing/eTransmitting on: 0 06/29/2025 09:34 AM EDT History and Physical Notes * HPI (History of Present Illness) Category Sub-Category Detail Notes Category Not es Cardiology Blood Pressure Elevated Pt here for 6 mo f/u on hypertension, states he is doing well and does not have any concerns. Pt is fasting today Examination Category Sub-Category Detail Notes Category Not es Cardiology Lungs: clear, no rales or wheezes Heart sounds: RRR, normal S1, S2 Extremities: no leg edema General Appearance: pleasant, NAD
--- OUTSIDE RECORDS SUMMARY | 2024-09-14 07:00 | XMS_ITS ---
Author Organization [facility] Address [address] [facility] [address] [place] [id number] Care Team Providers Care Metal Bench Patternmaker Name Role Phone Dedrick Church Primary Care Provider Allergies No Known Allergies REASON FOR VISIT look at skin tags on face Medications Medication SIG (Take, Route, Fr equency, Duration) Notes Start Date End Date Status valACYclovir HCl 1 GM 2 tablet Orally 2 times a day 09/14/2024 Active Lisinopril 10 MG 1 tablet Orally once daily; Duration: 90 days Active Problems Problem Type SNOMED Code ICD Code Onset Dates Problem Status W/U Status Risk Notes Problem 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 Vital Signs Blood pressure systolic 120 mm Hg 09/14/20 24 Blood pressure diastolic 74 mm Hg 024 Heart Rate 96 /min 09/14/2024 Height 75 in 09/14/2024 Weight 230 lbs 09/14/2024 BMI 28.74 kg/m2 09/14/2024 Encounters Encounter Location Date Provider Diagnosis [facility] [facility] [address] [place] [id number] 09/14/2024 Dedrick Church Recurrent herpes labialis B00.1 Assessments Encounter Date Diagnosis (ICD Code) Assessment Notes Treatment Notes Treatment Clinical Notes Section Notes 09/14/2024 Recurrent herpes labialis (ICD-10 - B00.1) Plan Of Treatment Medication Medication Name Sig Start Date Stop Date Notes valACYclovir HCl 1 GM 2 tablet Orally 2 times a day 2023 Next Appt Details Follow Up: prn, Reason: Provider Name:Dedrick Wayne ry, 11/11/2025 09:00:00 AM, [address], [address], [place], [place], [phone], Progress Notes * CHRISTOPHER LAWDOB: 2 (54 yo M)Acc No.[id number]:09/14/2024 Progress Notes Patient: CHRISTOPHER SIMEON Provider: Bronson Church M.D. :1970 A ge:54 Y S ex:Male Date:09/14/2024 Address:[address], [place], [id number] Subjective: * Chief Complaints: * 1 . Look at skin tags on face. * HPI: D ermatology: 54 year old male presents with c/o skin lesion P t complains of spot under lt eye and on rt cheek. Pt states they are not tender but his is concernced . * ROS: D ERMATOLOGY: no R talita. n o H rg. G ASTROENTEROLOGY: no N ausea. n o V omiting. U ROLOGY: no D ifficulty urinating. n o B lood in urine. * Medical History: H ypertension, Cologuard 2020. * Family History: High blood pressure: Grandmother, mother, sister. * Social History: C URRENT TOBACCO USE: No . C affeine: yes, frequency: 4 a day, soft drinks. Marital Status: . Alcohol: no. * Medications: T aking Lisinopril 10 MG Tablet 1 tablet Orally once daily , Medication List reviewed and reconciled with the patient * Allergies: N .K.D.A. Objective: * Vitals: W t:230, Temp:98.0, BP:120/74, HR:96, Nurse:javier, Ht: 75, BMI:28.74. * Examination: G eneral Examination: General Appearance: N AD. O ral cavity: i rregular, rough area on the lateral upper right chase border, small camacho, waxy papule with a stuck on appearance on the cheek inferior to the left eye. Assessment: * Assessment: 1. R ecurrent herpes labialis - B00.1 (Primary) Plan: * Treatment: * Follow Up: p rn * Images: Billing Information: * Visit Code: 45290 Office Visit, Est Pt., Level 3. * Procedure Codes: * Electronic signature of Charu Church MD on 06/29/2025 at 09:34 AM EDT Sign off status: Pending * Provider: Bronson Church M.D. Date: 1 11/15/2023 Generated for Luis F pierson/Lilliam/Brendensmitting on: 0 06/29/2025 09:34 AM EDT History and Physical Notes * HPI (History of Present Illness) Category Sub-Category Detail Notes Category Not es Dermatology skin lesion Pt complains of spot under lt eye and on rt cheek. Pt states they are not tender but his is concernced Examination Category Sub-Category Detail Notes Category Not es General Examination General Appearance: NAD Oral cavity: irregular, rough are a on the lateral upper right chase border, small camacho, waxy papule with a stuck on appearance on the cheek inferior to the left eye
--- OUTSIDE RECORDS SUMMARY | 2024-10-29 05:00 | XMS_ITS ---
Author Organization [facility] Address [address] [facility] [address] [place] [id number] Care Team Providers Care Journeyman Sheet Metal Worker Name Role Phone Dedrick Church Primary Care Provider Allergies No Known Allergies REASON FOR VISIT 6 month check Medications Medication SIG (Take, Route, Fr equency, Duration) Notes Start Date End Date Status Lisinopril 10 MG 1 tablet Orally once daily; Duration: 90 days Active Mupirocin 2 % 1 application Lot Technician ally Twice a day; Duration: 5 day(s) [...] Provider Diagnosis [facility] [address] [place] [id number] 10/29/2024 Dedrick Church Primary hypertension I10 Assessments [...] [address], [address], [place], [place], [id number], Progress Notes * CHRISTOPHER LAWDOB: 2 (54 yo M)Acc No.[id number]:10/29/2024 Progress Notes Patient: CHRISTOPHER SIMEON Provider: Bronson Church M.D. :1970 A ge:54 Y S ex:Male Date:10/29/2024 Address:[facility] [place], [id number] Subjective: * Chief Complaints: * 1 . [...] * Images: Billing Information: * Visit Code: 35417 Office Visit, Est Pt., Level 3. * Procedure Codes: * Electronic signature of Charu Church MD on 06/29/2025 at 09:34 AM EDT Sign off status: Pending * Provider: Bronson Church M.D. Date: 0 10/29/2024 Generated for Luis F pierson/Lilliam/eTransmitting on: 0 06/29/2025 09:34 AM EDT History [...]
--- OUTSIDE RECORDS SUMMARY | 2025-04-29 05:00 | XMS_ITS ---
Author Organization [facility] Address [address] [facility] [address] [place] [id number] Care Team Providers Care Director Of Agronomy Name Role Phone Dedrick Church Primary Care Provider Allergies No Known Allergies Results Component Value Reference Range Notes P-Basic Metabolic Panel (BMP ) Reviewed date:04/30/2025 09:39:02 AM Interpretation:Normal Performing Lab: Notes/Report: Test performed by [facility] [address] [place] [address] , [address], [place] [address] Nando Delgadillo MD, Licensed Optical Dispenser CLIA: [id number] Sodium 142 135-145 mmol/L Potassium 4.2 3.5-5.3 mmol/L Chloride 108 97-108 mmol/L CO2 25 20-32 mmol/L Glucose 98 65-99 mg/dL BUN 19 6-20 mg/dL Creatinine 0.91 0.70-1.30 mg/dL Calcium 8.9 8.6-10.4 mg/dL eGFR by Creatinine 101 >59 mL/min/1.73m2 P-Lipid Panel Reviewed date:04/30/2025 09:39:02 AM Interpretation:HDL 28, Chol/HDL 5.82, Non-HDL 135, LDL/HDL 3.9 Performing Lab: Notes/Report: Test performed by [facility] [address] [place], [place] [address] [address] , [address], [place] [address] Nando Delgadillo MD, Licensed Optical Dispenser CLIA: [id number] Cholesterol 163 <200 mg/dL Triglycerides 135 <150 [...] Interpretation:Normal Performing Lab: Notes/Report: Test performed by [facility] [address] [place] [address] , [address], [place] [address] Nando Delgadillo MD, Licensed Optical Dispenser CLIA: [id number] PSA 2.91 <4.00 ng/mL Please note this is an ultrasensitive PSA assay with a lower limit of detection of 0.014 ng/mL. This test is performed by the [employer] ECLIA methodology. Values obtained with different assay methods or kits cannot be directly compared. P-Microalbumin/Creatinine, R andom Urine Sample Reviewed date:04/30/2025 09:39:02 AM Interpretation:Normal Performing Lab: Notes/Report: Test performed by [facility] [address] [place] [address] , [address], [place] [address] Nando Delgadillo MD, Licensed Optical Dispenser CLIA: [id number] Albumin/Creatinine Ratio, Urine <1.98 0-30 ug/mg Microalbumin, Urine, Random <0.3 Creatinine, Urine 151.0 CT Scan : Coronary w/o contr ast (calcium scoring) Reviewed date:05/06/2025 01:13:00 PM Interpretation:no coronary artery calcification Performing Lab: Notes/Report: no coronary artery calcification Reason For Referral Diagnosis 1 Word finding difficu lty (R47.89) Referral Organization [facility] Referring Provider First Name Dedrick Referring Provider Last Name Ranjit Referring Provider Speciality Family Pra ctice Referred Provider Philomena Woods Referred Provider Specialty Neurology General Notes Gloria Schuler 2024 09:49:08 AM > faxed to [facility] NeurologyHarini Brynn 05/09/2025 09:40:44 AM > appt 08/02/2025 at 1:00pm Referral Priority Routine REASON FOR VISIT 6 [...] 04/29/2025 Encounters Encounter Location Date Provider Diagnosis [facility] [address] [facility] 36 [facility] [address] [place] [id number] 04/29/2025 Dedrick Church Primary hypertension I10 ; Word finding difficulty R47.89 ; Encounter for screening for coronary artery disease Z13.6 ; Prostate cancer screening Z12.5 and BMI 28.0-28.9,adult Z68.28 Assessments Encounter Date Diagnosis (ICD Code) Assessment Notes Treatment Notes Treatment Clinical Notes Section Notes 04/29/2025 Primary hypertension (ICD-10 - I10) 04/29/2025 Word finding difficulty (ICD-10 - R47.89) 04/29/2025 Encounter for screening for coronary artery disease (ICD-10 - Z13.6) 04/29/2025 Prostate cancer screening (ICD-10 - Z12.5) 04/29/2025 BMI 28.0-28.9,adult (ICD-10 - Z68.28) Plan Of Treatment Medication Medication Name Sig Start Date Stop Date Notes Lisinopril 10 MG Take 1 tablet by mouth once daily Referrals Referral Date Details 04/29/2025 04/29/2025, Philomena arteaga Next Appt Details Follow Up: 6 Months, Reason: Provider Name:Dedrick Wayne ry, 11/11/2025 09:00:00 AM, [address] [facility] 36 [facility], [address], [place], [id number], Progress Notes * CHRISTOPHER LAWDOB: 2 (54 yo M)Acc No.[id number]:04/29/2025 Progress Notes Patient: CHRISTOPHER SIMEON Provider: Bronson Church M.D. :1970 A ge:54 Y S ex:Male Date:04/29/2025 Address:[address], [place], [id number] Subjective: * Chief Complaints: * 1 . [...] ?4. P rostate cancer screening - Z12.5 5 . B SD 28.0-28.9,adult - Z68.28 Plan: * Treatment: Value Reference Range B [...] Scan : Coronary w/o contrast (calcium scoring) (Performed Date - 05/04/2025)?no coronary artery calcification* Gloria Schuler 04/29/2025 09:4 0:45 AM EDT > patient pays $99 at time of testing so no auth required; sent to [facility] Geena Montelongo 05/06/2025 01:12:44 PM EDT > Pt informed 4.?Prostate cancer screening?LAB: P-PSA (Collection Date & Time - 04/29/2025 08:35 AM)?Normal* Value Reference Range P SA 2.91 <4.00 - ng/mL * ChapincitoMouna 04/30/2025 09: 38:49 AM EDT > See phone encounter * Procedure Codes: 1 036F TOBACCO NON-USER, 3075F SYST BP GE 130 - 139MM HG, 3078F DIAST BP < 80 MM HG, G8420 BMI<30 AND >=22 CALC & DOCU * Follow Up: 6 Months * Images: Billing Information: * Visit Code: 80221 Office Visit, Est Pt., Level 4. * Procedure Codes: 1036F TOBACCO NON-USER. 3075F SYST BP GE 130 - 139MM HG. 3078F DIAST BP < 80 MM HG. G8420 BMI<30 AND >=22 CALC & DOCU. * Electronic signature of Charu Church MD on 06/29/2025 at 09:35 AM EDT Sign off status: Pending * Provider: Bronson Church M.D. Date: 0 04/29/2025 Generated for Luis F pierson/Lilliam/Natitting on: 0 06/29/2025 09:35 AM EDT History and Physical Notes * [...]
--- OUTSIDE RECORDS SUMMARY | 2025-06-29 09:34 | XMS_ITS | Clinical Summary ---
Author Organization [facility] Address [address] [place] [address] Care Team Providers Care Pulling Machine Operator Name Role Phone Dedrick Goodman MD Primary Care Provider [phone] Allergies No known active allergies Medications lisinopril [...] VACCINE (1 of 2) 2022 COVID-19 Vaccine (2023-2 5 season) 2025 INFLUENZA VACCINE 07/13/2025 07/13/2016 Procedures Procedure Name Priority Date/Time Associated Diagnosis Comments LIPID PANEL W/ CHOL/HDL RATIO Routine 07/08/2017 10:41 AM EDT Benign essential HTN Pure hypercholesterolemia from Last 3 Months or Most Recently Relevant to Health Maintenance Results * (ABNORMAL) Lipid Panel With / Chol / HDL Ratio (07/08/2017 10:41 AM EDT) Pathologist [facility] Total Cholesterol 173 0 - 200 mg/dL [...] - 07/08/2017 8:10 PM EDT Performed at: [address] [place] [address], [place], [place] [id number] Pipe Line Gauger: Tres Rojas MD, Phone: [phone] Patient Fasting: Y us Dedrick Goodman MD LAB BLOOD ORDERABLES Final Resu lt [facility] [address] [place] [address], [place] [phone] [facility] [address] [place] [address], [place] [phone] from Last 3 Months or Most Recently Relevant to Health Maintenance Insurance [facility] [employer] Care Teams Pulling Machine Operator Relationship Specialty Start Date End Date Dedrick Goodman MD [address] [facility] [place] [address] PCP - General 06/28/15
--- OUTSIDE RECORDS SUMMARY | 2025-06-29 09:34 | XMS_ITS | Patient Health Record ---
Author Organization [facility] Address [address] [place] [id number] Care Team Providers Care Rotary Pump Operator Name Role Phone Dedrick Church Primary Care Provider Allergies No Known Allergies Results Component Value Reference Range Notes CT Scan : Coronary w/o contr ast (calcium scoring) Reviewed date:05/06/2025 01:13:00 PM Interpretation:no coronary artery calcification Performing Lab: Notes/Report: no coronary artery calcification P-Microalbumin/Creatinine, R andom Urine Sample Reviewed date:04/30/2025 09:39:02 AM Interpretation:Normal Performing Lab: Notes/Report: Test performed by [facility] [address] [place] [address] , [address], [place] [address] Nando Delgadillo MD, Warehouse Shipping Supervisor CLIA: [id number] Albumin/Creatinine Ratio, Urine <1.98 0-30 ug/mg Microalbumin, Urine, Random <0.3 Creatinine, Urine 151.0 P-PSA Reviewed date:04/30/2025 09:39:02 AM Interpretation:Normal Performing Lab: Notes/Report: Test performed by [facility] [address] [place], [place] [address] Sandra Fernandez, [address], [place] [address] Nando Delgadillo MD, Warehouse Shipping Supervisor CLIA: [id number] PSA 2.91 <4.00 ng/mL Please note this is an ultrasensitive PSA assay with a lower limit of detection of 0.014 ng/mL. This test is performed by the Muna ECLIA methodology. Values obtained with different assay methods or kits cannot be directly compared. P-Lipid Panel Reviewed date:04/30/2025 09:39:02 AM Interpretation:HDL 28, Chol/HDL 5.82, Non-HDL 135, LDL/HDL 3.9 Performing Lab: Notes/Report: Test performed by [facility] [address] [place] [address] [address] , [place] [address] Nando Delgadillo MD, Warehouse Shipping Supervisor CLIA: [id number] Cholesterol 163 <200 mg/dL Triglycerides 135 <150 [...] Interpretation:Normal Performing Lab: Notes/Report: Test performed by [facility], [address] , [address], [place] [address] Nando Delgadillo MD, Warehouse Shipping Supervisor CLIA: [id number] Sodium 142 135-145 mmol/L Potassium 4.2 3.5-5.3 mmol/L Chloride 108 97-108 mmol/L CO2 25 20-32 mmol/L Glucose 98 65-99 mg/dL BUN 19 6-20 mg/dL Creatinine 0.91 0.70-1.30 mg/dL Calcium 8.9 8.6-10.4 mg/dL eGFR by Creatinine 101 >59 mL/min/1.73m2 Reason For Referral Reason [facility], no provider pre ference Diagnosis 1 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 Referred Provider Specialty ENT General Notes Gloria Schuler 024 2:19:02 PM > faxed to [facility] Harini LEWIS Brynn 09/23/2024 10:33:38 AM > confirmed with Bridget referral received 09/21/2024 Referral Priority Routine Diagnosis 1 Word finding difficu lty (R47.89) Referral Organization [facility] Referring Provider First Name Dedrick Referring Provider Last Name Ranjit Referring Provider Speciality Family Pra rodoice Referred Provider Philomena Woods Referred Provider Specialty Neurology General Notes Gloria Schuler 2024 09:49:08 AM > faxed to [facility] Neurology, HariniGloria 05/09/2025 09:40:44 AM > appt 08/02/2025 at 1:00pm Referral Priority Routine Medications Medication SIG (Take, [...] Status Risk Notes 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 Problem Primary hypertension (33531276) Primary hypertension (I10) Active confirmed Vital Signs Heart Rate 75 /min 04/29/2025 Blood pressure diastolic 70 mm Hg 04/29/2025 Height 75 in 04/29/2025 Blood pressure systolic 130 mm Hg 04/29/2025 Weight 229 lbs 04/29/2025 BMI 28.62 kg/m2 04/29/2025 Encounters Encounter Location Date Provider Diagnosis [facility] [address] [facility] [address] [place], [place] [id number] 09/14/2024 [place] Recurrent herpes labialis B00.1 [facility] [address] [place], [place] [id number] 10/29/2024 Ded[place] Primary hypertension I10 [facility] [address] [place], [place] [id number] 04/29/2025 Dedrick [place] Primary hypertension I10 ; Word finding difficulty R47.89 ; Encounter for screening for coronary artery disease Z13.6 ; Prostate cancer screening Z12.5 and BMI 28.0-28.9,adult Z68.28 [facility] [address] [facility] [address] [place], [place] [id number] 09/20/2024 Dedrick [place] 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, vermilion border D37.01 [facility] [address] [facility] [address] [place] [id number] 04/30/2025 Dedrick [facility] [address] [place] [id number] 05/16/2025 Dedrick Church Assessments Encounter Date Diagnosis (ICD Code) Assessment [...] 28.0-28.9,adult (ICD-10 - Z68.28) Plan Of Treatment Next Appt Details Provider Name:Dedrick [place] , 11/11/2025 09:00:00 AM, [address] [facility], [address], [place], [id number], Insurance Providers Payer Name Payer Address Payer Phone Subscriber Number Group Number Insured Name Patient Relationship to Insured Coverage Start Date Coverage End Date [employer] [address] [place] [address] [id number] [employer]RI[employer]HER [employer] Self - patient is the insured Medical (General) History Medical History History ICD Code Hypertension Cologuard 2020 Surgical History Surgery Date(Month/Year)
[2025-06-29 10:56] LABS: Vitamin B12 840 pg/mL (239-931)
[2025-06-29 11:14] LABS: Folate 15.60 ng/mL
== END 2025-06-29 23:59 | disposition home or self-care (01) ==
LOC: LAB 09:26
PROVIDERS: PCP Family Medicine; Visit Provider Specialist
DX: G93.40 Encephalopathy, unspecified (principal); R41.3 Other amnesia; R47.89 Other speech disturbances
CPT/HCPCS: 36415; 82607; 82746